=== PATIENT | male | born 1965 | race Caucasian/White ===

== ENCOUNTER 2018-09-14 19:32 | Emergency (ER) | payer OTHER ==
--- NOTE | 2018-09-14 19:56 | Emergency Department Report ---
Blank Doc - Documentation Documentation: This is a 53-year-old male that presents with dizziness, feeling rapid heart r ate and nausea. Stated has some SOB. This initial assessment/diagnostic orders/clinical plan/treatment(s) is/are subject to change based on patient's health status, clinical progression and re-assessment by fellow clinical providers in the ED. Further treatment and workup at subsequent clinical providers discretion. Patient/guardians urged not to elope from the ED as their condition may be serious if not clinically assessed and managed. Initial orders include: 1- Patient sent to MAIN ED for further evaluation and treatment 2- Course Instructor line used for translation 3- labs 4- EKG
[2018-09-14 20:18] LABS: Basophils # (Auto) 0.1 K/mm3 (0.0-0.1); Basophils % (Auto) 0.8 % (0.0-1.8); Eosinophils # (Auto) 0.8 K/mm3 (0.0-0.4); Eosinophils % (Auto) 8.8 % (0.0-4.3); Lymphocytes # (Auto) 1.3 K/mm3 (1.2-5.4); Lymphocytes % (Auto) 14.5 % (13.4-35.0); Mean Corpuscular HGB Conc 36 % (32-34); Mean Corpuscular Volume 92 fl (84-94); Monocytes # (Auto) 0.5 K/mm3 (0.0-0.8); Monocytes % (Auto) 5.8 % (0.0-7.3); Platelet Count 215 K/mm3 (140-440); Red Blood Count 5.35 M/mm3 (3.65-5.03); Red Cell Distribution Width 13.2 % (13.2-15.2)
[2018-09-14 20:19] LABS: Hemoglobin 17.5 gm/dl (11.8-15.2)
[2018-09-14 20:28] LABS: INR 0.95 (0.87-1.13); Partial Thromboplastin Time 35.9 Sec. (24.2-36.6)
[2018-09-14] MEDS ORDERED: ANTIVERT PO ONE (20:43)
[2018-09-14 20:46] LABS: Alanine Aminotransferase 28 units/L (7-56); Albumin 4.9 g/dL (3.9-5); BUN/Creatinine Ratio 17; Blood Urea Nitrogen 20 mg/dL (9-20); Hemolysis Index 15
[2018-09-14 20:55] LABS: Amphetamine Screen,Urine PRESUMPTIVE NEGATIVE; Benzodiazepines Screen,Urine PRESUMPTIVE NEGATIVE; Cannabinoid Screen,Urine PRESUMPTIVE NEGATIVE; Cocaine Screen,Urine PRESUMPTIVE NEGATIVE; Methadone Screen,Urine PRESUMPTIVE NEGATIVE; Opiate Screen,Urine PRESUMPTIVE NEGATIVE
--- NOTE | 2018-09-14 20:58 | Emergency Department Report ---
HPI - General Chief Complaint: Dizziness Time Seen by Provider: 09/14/18 19:49 - HPI HPI: 53-year-old male presents to the emergency department with complaint of a headache, some dizziness and palpitations that started earlier today, around 6:00 PM. The patient does not speak much Croatian and his nephew is currently at bedside during translation. The patient describes the dizziness more as a vertigo sensation with the room spinning. His headache is generalized and mild. He denies any blurry vision, slurred speech, numbness or any other focal deficits. He denies any chest pain but did have some mild shortness of breath earlier. The patient says that he recently quit smoking tobacco and denies any illicit drug use. He has a past medical history of hypertension and high cholesterol. He has a primary care physician. No recent travel or sick contacts at home. He did not take anything for his symptoms prior to arrival today. ED Past Medical Hx - Past Medical History Hx Hypertension: Yes Additional medical history: elevated cholestoral - Social History Smoking Status: Never Smoker Substance Use Type: None - Medications Home Medications: Home Medications Medication Instructions Recorded Confirmed Last Taken Type Meclizine [Antivert] 25 mg PO TID PRN #20 tablet 09/14/18 Unknown Rx ED Review of Systems ROS: Stated complaint: HEADACHE, BLEEDING Other details as noted in HPI Comment: All other systems reviewed and negative Constitutional: denies: chills, fever Eyes: denies: eye pain, vision change ENT: denies: ear pain, throat pain Respiratory: shortness of breath. denies: cough Cardiovascular: palpitations. denies: chest pain Gastrointestinal: denies: abdominal pain, vomiting Genitourinary: denies: dysuria, discharge Musculoskeletal: denies: back pain, arthralgia Skin: denies: rash, lesions Neurological: headache, vertigo. denies: weakness, numbness, paresthesias, confusion Physical Exam - Physical Exam Vital Signs: Vital Signs 09/14/18 09/14/18 19:41 20:30 Temperature 98.1 F 97.9 F Pulse Rate 69 63 Respiratory 18 18 Rate Blood Pressure 130/76 Blood Pressure 135/79 [Left] O2 Sat by Pulse 97 98 Oximetry Physical Exam: GENERAL: The patient is well-developed well-nourished. HENT: Normocephalic. Atraumatic. Patient has moist mucous membranes. EYES: Extraocular motions are intact. Pupils equal reactive to light bilaterally. Mild fatigable horizontal nystagmus. NECK: Supple. Trachea is midline. CHEST/LUNGS: Clear to auscultation. There is no respiratory distress noted. HEART/CARDIOVASCULAR: Regular. There is no tachycardia. There is no murmur. ABDOMEN: Abdomen is soft, nontender. Patient has normal bowel sounds. There is no abdominal distention. SKIN: Skin is warm and dry. NEURO: The patient is awake, alert, and oriented. The patient is cooperative. The patient has no focal neurologic deficits. The patient has normal speech. Cranial nerves II through XII grossly intact. No pronator drift. No dysmetria. MUSCULOSKELETAL: There is no tenderness or deformity. There is no limitation range of motion. There is no evidence of acute injury. ED Course Vital Signs 09/14/18 09/14/18 19:41 20:30 Temperature 98.1 F 97.9 F Pulse Rate 69 63 Respiratory 18 18 Rate Blood Pressure 130/76 Blood Pressure 135/79 [Left] O2 Sat by Pulse 97 98 Oximetry ED Medical Decision Making - Lab Data Result diagrams: 09/14/18 20:04 09/14/18 20:04 - EKG Data -: EKG Interpreted by Mo EKG shows normal: sinus rhythm, axis, intervals, QRS complexes, ST-T waves (mild ST elevation in leads II and V5, nothing contiguous and no ST depression) Rate: normal - EKG Data When compared to previous EKG there are: previous EKG unavailable Interpretation: other (Sinus rhythm, mild ST elevation in leads II and V5, nothing contiguous and no ST depression) - Radiology Data Radiology results: report reviewed, image reviewed interpreted by me: Chest x-ray does not show any acute process. There are no pleural effusions, obvious pneumonia and there is no pneumothorax. PROCEDURE: CT HEAD/BRAIN WO CON TECHNIQUE: Computerized tomography of the head was performed without contrast material. CT DOSE LENGTH PRODUCT: 805.4 mGycm HISTORY: dizziness COMPARISONS: None . FINDINGS: Brain: Brain density appears normal. No evidence of intracranial hemorrhage. No parenchymal hemorrhage, mass lesions or mass effect are seen. No abnormal extra-axial fluid collects or masses are seen. Ventricles: Ventricles are normal size and are midline. Bone Windows: No evidence of skull fracture. Paranasal sinuses: There is minimal mucosal thickening in the sphenoid sinuses and a few of the ethmoid air cells. Paranasal sinuses otherwise are clear. Mastoid air cells: Visualized portions are clear.. IMPRESSION: Negative unenhanced CT scan of the brain. Minimal mucosal thickening sphenoid sinuses and a few of the ethmoid air cells. . This document is electronically signed by Juan Diego Alberto MD., September 14 2018 09:58:27 PM ET Transcribed By: DFN Dictated By: JUAN DIEGO ALBERTO MD Electronically Authenticated By: JUAN DIEGO ALBERTO MD Signed Date/Time: 09/14/18 2200 - Medical Decision Making Patient presents to the emergency department with complaint of a headache, palpitations and vertigo-like dizziness. On examination he has some fatigable horizontal nystagmus but otherwise there are no focal, motor or sensory deficits and his cranial nerves are intact. Heart and lung sounds are normal to auscultation. EKG did not show any signs of ST elevation [place] or dysrhythmia. CT of the head was done and does not show any bleed, shift, mass, ischemia, or any other acute process. Chest x-ray did not show any acute process as well. Labs have been unremarkable including CBC, metabolic panel, troponin, TSH. The patient was given a dose of Antivert. He was reevaluated multiple times over multiple hours and is feeling greatly improved. He says that his symptoms have completely resolved. He was seen ambulatory in the emergency department and both appears it feels stable. He will be discharged home to follow up with his primary care physician and will be given a prescription for Antivert. He will return to the ER with any return or worsening of his symptoms, with any acute distress. - Differential Diagnosis CVA, TIA, BPPV, Dysrythmia Critical Care Time: No Critical care attestation.: If time is entered above; I have spent that time in minutes in the direct care of this critically ill patient, excluding procedure time. ED Disposition Clinical Impression: Vertigo, Dizziness, Palpitations Disposition: DC-01 TO HOME OR SELFCARE Is pt being admited?: No Condition: Stable Instructions: Palpitations (ED), Vertigo (ED), Dizziness (ED) Additional Instructions: Please follow up with her primary care physician in the next few days. Return to the emergency department with any worsening of her symptoms, development of chest pain, or with any acute distress. Prescriptions: Meclizine [Antivert] 25 mg PO TID PRN #20 tablet PRN Reason: Vertigo Referrals: KATE ZUNIGA MD [Primary Care Provider] - 2-3 Days Time of Disposition: 22:59 - Assessment Assessment Interval: Baseline - Level of Consciousness 1a. Level of Consciousness: alert/keenly responsive - LOC Questions 1b. LOC Questions: answers both correctly - LOC Command 1c. LOC Commands: performs tasks correctly - Best Gaze 2. Best Gaze: normal - Visual 3. Visual: no visual loss - Facial Palsy 4. Facial Palsy: normal symmetrical movement - Motor Arm 5a. Motor Arm Left: no drift 5b. Motor Arm Right: no drift - Motor Leg 6a. Motor Leg Left: no drift 6b. Motor Leg Right: no drift - Limb Ataxia 7. Limb Ataxia: absent - Sensory 8. Sensory: normal - Best Language 9. Best Language: no aphasia - Dysarthria 10. Dysarthria: normal
--- NOTE | 2018-09-14 21:41 | XRay Report ---
PROCEDURE: XR CHEST ROUTINE 2V TECHNIQUE: PA and lateral chest radiographs were obtained. HISTORY: SOB COMPARISONS: None. FINDINGS: Heart: Normal. Left ventricular configuration suggestive of systemic hypertension Mediastinum/Vessels: Normal. Lungs/Pleural space: Coarsening of the bronchovascular interstitium bilaterally. Bronchial wall thic kening the lower lobes. Mild underlying emphysema with increased retrosternal clear space. Bony thorax: No acute osseous abnormality. IMPRESSION: Probable emphysema and chronic bronchitis. Mild bilateral increased reticular interstitia l markings may suggest an interstitial infiltrate. Recommend follow-up 2 view chest after treatment o r consider CT chest if the clinical picture is not clear. No priors for comparison. If priors become available, this report can be addended. This document is electronically signed by Loida Gar MD., September 14 2018 09:40:05 PM ET
--- NOTE | 2018-09-14 22:00 | Cat Scan Report ---
PROCEDURE: CT HEAD/BRAIN WO CON TECHNIQUE: Computerized tomography of the head was performed without contrast material. CT DOSE LENGTH PRODUCT: 805.4 mGycm HISTORY: dizziness COMPARISONS: None . FINDINGS: Brain: Brain density appears normal. No evidence of intracranial hemorrhage. No parenchymal hemorr nash, mass lesions or mass effect are seen. No abnormal extra-axial fluid collects or masses are see n. Ventricles: Ventricles are normal size and are midline. Bone Windows: No evidence of skull fracture. Paranasal sinuses: There is minimal mucosal thickening in the sphenoid sinuses and a few of the ethmo id air cells. Paranasal sinuses otherwise are clear. Mastoid air cells: Visualized portions are clear.. IMPRESSION: Negative unenhanced CT scan of the brain. Minimal mucosal thickening sphenoid sinuses and a few of the ethmoid air cells. . This document is electronically signed by Daljit Alberto MD., September 14 2018 09:58:27 PM ET
[2018-09-14 23:19] VITALS: BP 124/76
== END 2018-09-14 23:15 | disposition home or self-care (01) ==
LOC: ED 19:32
DX: R42 Dizziness and giddiness (principal); R00.2 Palpitations; I10 Essential (primary) hypertension; E78.00 Pure hypercholesterolemia, unspecified; Z79.899 Other long term (current) drug therapy
CPT/HCPCS: 36415; 70450; 71046; 80053; 80307; 82962; 83690; 84443; 84484; 85025; 85379; 85610; 85730; 93005; 93010; 99285